=== PATIENT | female | born 1970 | race Two or more races ===

== ENCOUNTER 2020-06-18 16:11 | Inpatient (IN) | payer OTHER ==
[~2020-06-18] VITALS: Ht 152.4 cm; Wt 56.7 kg
[~2020-06-18 16:11] MED LIST: IRON325 MG PO
== END 2020-06-27 11:37 | disposition home or self-care (01) | DRG 743 ==
LOC: O/R 06-25 06:10 → SURH 06-25 11:00 → O/R 06-25 11:00 → OB/GYN 06-25 15:15 → SURH 06-25 20:45 → OB/GYN 06-27 11:37
PROVIDERS: ADMIT Obstetrics & Gynecology Gynecologic Oncology; ATTEND Obstetrics & Gynecology Gynecologic Oncology
PROC: 0UT70ZZ Resection of Bilateral Fallopian Tubes, Open Approach (ICD-10-PCS; 2020-06-25)
PROC: 0UT90ZZ Resection of Uterus, Open Approach (ICD-10-PCS; principal; 2020-06-25 20:45)
DX: D25.1 Intramural leiomyoma of uterus (principal); D25.0 Submucous leiomyoma of uterus; D25.2 Subserosal leiomyoma of uterus; N72 Inflammatory disease of cervix uteri; N83.8 Other noninflammatory disorders of ovary, fallopian tube and broad ligament

== ENCOUNTER 2021-07-24 12:09 | Emergency (ER) | payer OTHER ==
[~2021-07-24] VITALS: Ht 160 cm; Wt 57.6 kg
[2021-07-24] MEDS ORDERED: CIPRO500 MG PO (17:10)
[2021-07-24] MEDS ORDERED: FLAGYL500MG PO (17:10)
[2021-07-24] MEDS ORDERED: PEPCID AC20 MG PO (17:10)
== END 2021-07-24 19:36 | disposition home or self-care (01) ==
LOC: ER 12:09
DX: R19.7 Diarrhea, unspecified (principal)